=== PATIENT | male | born 1980 | race Caucasian/White ===

== ENCOUNTER 2016-10-10 17:06 | Emergency (ER) | payer SELFPAY ==
[~2016-10-10] VITALS: Ht 167.6 cm; Wt 90.7 kg
[2016-10-10 17:10] VITALS: BP 147/84
--- NOTE | 2016-10-10 17:13 | NUR ---
APPLIED A RHINO ROCKET TO RIGHT NARE---PT CONTINUES WITH FULL CLEAR SPEECH. ADDS HE WENT TO A HOSP IN [place] BUT NOSEBLEED SUBSIDED THEN. AFTER DC IN CONTINUED--
--- NOTE | 2016-10-10 19:43 | NUR ---
PT TAKEN TO BED 6
--- NOTE | 2016-10-10 19:59 | NUR ---
36/M presents to ED with complaints of a nose bleed that started since 0900 this morning. Pt explains he has hx of nose bleeds since he was a kid but this nose bleed was continuous today. Pt noted with a rhino rocket to right nare that he explains was placed by the doctor in the ED earlier while in triage. Patient denies any medical history. No active bleeding at this time. Patient denies headache. Denies dizziness. Denies N/V/D. Denies any other symptoms at this time. VSS at this time.
--- NOTE | 2016-10-10 20:18 | NUR ---
Dr. Bowers evaluating patient at bedside.
[2016-10-10 20:56] VITALS: BP 121/79
--- NOTE | 2016-10-10 20:56 | NUR ---
Patient discharged with v/s stable. Written and verbal after care instructions given and explained. Patient verbalized understanding. Ambulatory with steady gait. All questions addressed prior to discharge. Advised to follow up with PMD. ID BAND REMOVED.
== END 2016-10-10 20:56 | disposition home or self-care (01) ==
LOC: MED 17:06
DX: R04.0 Epistaxis (principal)

== ENCOUNTER 2016-10-11 08:07 | Emergency (ER) | payer SELFPAY ==
[~2016-10-11] VITALS: Ht 172.7 cm; Wt 90.7 kg
[2016-10-11 08:12] VITALS: BP 144/75
--- NOTE | 2016-10-11 08:25 | NUR ---
PT AMBULATED TO BED 8 AT THIS TIME.
--- NOTE | 2016-10-11 08:30 | NUR ---
RECHECK OF BLOODY NOSE TO RIGHT NARES; DENIES N/V/D; SKIN IS PINK/WARM/DRY; AAOX4 WITH EVEN AND STEADY GAIT; LUNGS CLEAR BL; HR EVEN AND REGULAR; PT DENIES ANY FEVER, CP, SOB, OR COUGH AT THIS TIME; PATIENT STATES PAIN OF 0/10 AT THIS TIME; VSS; PATIENT POSITIONED FOR COMFORT; HOB ELEVATED; BEDRAILS UP X2; BED DOWN. ER MD MADE AWARE OF PT STATUS.
[2016-10-11 08:55] VITALS: BP 131/66
--- NOTE | 2016-10-11 08:55 | NUR ---
Patient discharged with v/s stable. Written and verbal after care instructions given and explained. Patient verbalized understanding. Ambulatory with steady gait. All questions addressed prior to discharge. Advised to follow up with PMD.
== END 2016-10-11 08:55 | disposition home or self-care (01) ==
LOC: MED 08:07
DX: R04.0 Epistaxis (principal); R03.0 Elevated blood-pressure reading, without diagnosis of hypertension; R51 Headache